=== PATIENT | female | born 2000 | race African-American/Black ===

== ENCOUNTER 2021-06-29 13:37 | Emergency (ER) ==
[2021-06-30 07:36] LABS: SARS-CoV-2 PCR by NAA Not Detected (NotDetected)
== END 2021-06-29 16:15 | disposition home or self-care (01) ==
LOC: CSHERS 13:37
DX: J06.9 Acute upper respiratory infection, unspecified (principal); Z20.822 Contact with and (suspected) exposure to COVID-19
CPT/HCPCS: 99283; U0003; U0005

== ENCOUNTER 2021-09-06 20:01 | Emergency (ER) | payer SELFPAY ==
[2021-09-06] MEDS ORDERED: Ibuprofen 200 MG TAB ONE (23:10)
[2021-09-06] MEDS ORDERED: Acetaminophen 500 MG TAB ONE (23:10)
[2021-09-06] MEDS ORDERED: Ondansetron ODT 4 MG TAB ONE (23:10)
[2021-09-07 16:05] LABS: SARS-CoV-2 PCR by NAA Not Detected (NotDetected)
== END 2021-09-06 23:51 | disposition home or self-care (01) ==
LOC: CSHERS 20:01
DX: B34.9 Viral infection, unspecified (principal); Z20.822 Contact with and (suspected) exposure to COVID-19
CPT/HCPCS: 99283; Q0162; U0003; U0005

== ENCOUNTER 2021-09-10 18:44 | Emergency (ER) | payer SELFPAY | END 2021-09-10 19:47 | disposition home or self-care (01) | LOC: CSHERS 18:44 | DX: B34.9 Viral infection, unspecified (principal) | CPT/HCPCS: 87804; 99284 ==

== ENCOUNTER 2022-10-04 13:20 | Emergency (ER) | payer SELFPAY ==
[2022-10-04 14:40] LABS: SARS-CoV-2 NAA Rapid Test Not Detected (NotDetected)
== END 2022-10-04 15:40 | disposition home or self-care (01) ==
LOC: CSHERS 13:20
DX: J30.9 Allergic rhinitis, unspecified (principal); Z20.822 Contact with and (suspected) exposure to COVID-19
CPT/HCPCS: 99283

== ENCOUNTER 2023-05-25 12:14 | Emergency (ER) | payer SELFPAY | END 2023-05-25 13:15 | disposition home or self-care (01) | LOC: CSHERS 12:14 | DX: H92.01 Otalgia, right ear (principal); K08.89 Other specified disorders of teeth and supporting structures | CPT/HCPCS: 99282 ==

== ENCOUNTER 2024-01-10 13:38 | Emergency (ER) | payer SELFPAY | END 2024-01-10 14:15 | disposition home or self-care (01) | LOC: CSHERS 13:38 | DX: K04.7 Periapical abscess without sinus (principal); F17.210 Nicotine dependence, cigarettes, uncomplicated | CPT/HCPCS: 99283 ==

== ENCOUNTER 2024-05-11 19:50 | Emergency (ER) | payer SELFPAY ==
[2024-05-11] MEDS ORDERED: Ibuprofen 800 MG TAB ONE (21:45)
[2024-05-11] MEDS ORDERED: Acetaminophen 500 MG TAB ONE (22:27)
== END 2024-05-11 22:31 | disposition home or self-care (01) ==
LOC: CSHERS 19:50
DX: M25.511 Pain in right shoulder (principal); F17.210 Nicotine dependence, cigarettes, uncomplicated
CPT/HCPCS: 99283